=== PATIENT | male | born 1995 | race Caucasian/White ===

== ENCOUNTER 2020-04-04 00:59 | Inpatient (IN) ==
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
[2020-04-04 01:26] LABS: Appearance Urine Clear (Clear); Bilirubin Urine Negative (Negative); Blood Urine Negative (Negative); Color Urine Yellow; Glucose Urine UA Negative (Negative); Ketones Urine Negative (Negative); Leukocyte Esterase Urine Negative (Negative); Nitrite Urine Negative (Negative); Protein Urine Negative (Negative); Urobilinogen Urine Negative (Negative)
[2020-04-04 01:51] LABS: Basophils # (auto) 0.04 K/uL (0-0.2); Basophils % (auto) 0.4 %; Eosinophils # (auto) 0.18 K/uL (0-0.5); Eosinophils % (auto) 1.7 %; Hematocrit (blood only) 47.2 % (42-52); Hemoglobin 15.9 g/dL (14.0-18.0); Immature Granulocytes # (auto) 0.03 K/uL (0.00-0.02); Immature Granulocytes % (auto) 0.3 %; Lymphocytes % (auto) 22.7 %; Mean Corpuscular Hemoglobin 29.9 pg (25-34); Mean Corpuscular Hgb Conc 33.7 g/dL (32-36); Mean Corpuscular Volume 88.7 fL (80-100); Mean Platelet Volume 10.4 fL (7.4-10.4); Monocytes # (auto) 0.63 K/uL (0.11-0.59); Monocytes % (auto) 5.9 %; Neutrophils # (auto) 7.31 K/uL (1.4-6.5); Platelet Count 284 K/uL (130-400); RDW Coefficient of Variation 13.3 % (11.5-14.5); RDW Standard Deviation 43.5 fL (36.4-46.3); Red Blood Count 5.32 M/uL (4.7-6.1); White Blood Count 10.59 K/uL (4.8-10.8)
[2020-04-04 01:56] LABS: Amphetamines+Metham, Urine Pos (Neg); Barbiturates, Urine Neg (Neg); Benzodiazepine, Urine Neg (Neg); Cocaine, Urine Neg (Neg); MDMA (Ecstacy), Urine Neg (Neg); Methadone, Urine Neg (Neg); Opiate, Urine Neg (Neg); Phencyclidine, Urine Neg (Neg)
[2020-04-04 02:13] LABS: Albumin Level 4.2 gm/dl (3.4-5.0); BUN Creatinine Ratio 12.8 (10-20); Calcium 9.3 mg/dl (8.5-10.1); Creatinine Clr Calc Pharmacy 110.4 ml/min; Est GFR (African American) 118.4; Est GFR (Non-African American) 102.2; Potassium 4.2 mmol/L (3.5-5.1)
[2020-04-04] MEDS ORDERED: IOVERSOL 100ml IV PRN (02:17)
[2020-04-04 02:24] LABS: Albumin Globulin Ratio 1.1 (0.9-2); Bilirubin,Total 0.6 mg/dl (0.2-1); Globulin 3.8 gm/dl (2.5-4.0); Thyroid Stimulating Hormone 4.92 uIu/ml (0.300-4.500)
[2020-04-04 02:37] LABS: T4 Free Thyroxine 1.07 ng/dl (0.8-1.6)
[2020-04-04 02:39] LABS: Acetaminophen < 2 ug/ml (10-30)
[2020-04-04 02:40] LABS: Salicylate < 1.7 mg/dl (2.8-20)
--- NOTE | 2020-04-04 06:59 | CT Scan Report ---
CT OF THE NECK WITH IV CONTRAST CLINICAL HISTORY: eval trauma from attempted hanging COMPARISON STUDY: No previous studies for comparison. TECHNIQUE: Following IV administration of 93 mL of Optiray-320, helical axial images of the neck wer e obtained. Sagittal and coronal reconstructions were viewed. Automated exposure control was utiliz ed for the study. A dose lowering technique was utilized adhering to the principles of ALARA. CT DOSE: 586.26 mGy.cm FINDINGS: Visualized portions of the intracranial contents are unremarkable. The epiglottis is troy l. No hematoma within the neck is noted. There is no evidence of vascular injury within the neck. The re is mild asymmetric enlargement of the right laryngeal ventricle. No cervical spine fracture is not ed. There is no prevertebral edema. Lung apices are unremarkable. There is no pneumothorax within vis ualized portions of the upper chest. IMPRESSION: No acute findings within the neck. ACT 112: Negative or not required by law. Electronically signed by: Kory Martin M.D. 04/04/2020 6:58 AM
[2020-04-04] MEDS ORDERED: ACETAMINOPHEN 325 MG TAB PO PRN (09:16)
[2020-04-04] MEDS ORDERED: ALUMINUM/MAGNESIUM SUSP 30 ML UDC PO PRN (09:16)
[2020-04-04] MEDS ORDERED: BISMUTH SUBSALICYLATE PER ML OMNICELL CHARGE PO PRN (09:16)
[2020-04-04] MEDS ORDERED: MAGNESIUM HYDROXIDE SUSP 30 ML UDC PO PRN (09:16)
[2020-04-04] MEDS ORDERED: SODIUM CHLORIDE 0.65% NA SOLN 45 ML (OCEAN) PRN (09:16)
--- NOTE | 2020-04-04 09:38 | Emergency Department Note ---
ED Visit Note The patient was signed out to me awaiting placement. The patient was accepted at 3 S. at 9:35 AM. . : Suicide attempt by hanging Qualifiers: Encounter type: initial encounter Qualified Code(s): T71.162A - Asphyxiation due to hanging, intentional self-harm, initial encounter
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
[2020-04-04] MEDS ORDERED: AMPHETAMINE ASP/SULF/DEXTRAMPH 10 MG TAB PO ONE (14:00)
[2020-04-05] MEDS: AMPHETAMINE ASP/SULF/DEXTRAMPH 10 MG TAB PO SCH (08:02)
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
[2020-04-05] MEDS ORDERED: SERTRALINE HCL 50 MG TABLET PO ONE (12:15)
[2020-04-06] MEDS: AMPHETAMINE ASP/SULF/DEXTRAMPH 10 MG TAB PO SCH (07:56)
[2020-04-06] MEDS: SERTRALINE HCL 50 MG TABLET PO SCH (07:56)
[2020-04-06 09:10] LABS: Amphetamine Urine, Confirm 2970 ng/mL (<250); Methamphetamine, Ur Confirm NEGATIVE ng/mL (<250)
--- NOTE | 2020-04-06 11:18 | Psychiatric Progress Note ---
Date of Service April 06, 2020 Impression / Recommendations Impression 24-year-old male admitted involuntarily for inpatient psychiatric treatment on 04/04/2020 after presenting to the ED s/p suicide attempt by hanging. Pt has been seen at [facility] for medication management for ADHD, and Adderall was substituted for non-formulary Vyvanse on admission. Pt was initially withdrawn, but did agree to a scheduled support meeting with a friend and was eventually willing to discuss starting an antidepressant - sertraline. Friend/colleage is supportive, and so is patient's mother - who is planning to come to the area when the patient is discharged and stay with him. Although patient is now denying SI, he endorses feeling overwhelmed and "stuck". Inpatient psychiatric treatment is medically necessary until outpatient psychiatric services can be arranged and safety plan has been completed. Pt remains at acute risk of suicide if discharged prematurely. (1) Major depression: 04/04 The patient was admitted to the [facility] ([facility] mental health unit) on q15 min checks (behavioral with suicide precautions) for safety. The patient will participate in group, recreational, and milieu therapies and will be offered additional individual and family sessions as clinically appropriate. States he would consider a trial of antidepressant medication, will address after more settled on unit. 04/05 - Pt continues to be somewhat withdrawn, but is agreeable with conversation and is willing to discuss medication recommendations. Pt verbalizes willingness to initiate an SSRI to target depressive/anxiety symptoms - stating this was initially recommended when he began treatment for ADHD, but he felt he did not need an antidepressant at the time. Risks, benefits, and potential side effects of sertraline were reviewed - pt verbalized understanding and is agreeable with receiving 25mg this afternoon, and increasing to 50mg qAM starting tomorrow morning. - Pt denies SI presently, but feels admission is beneficial in order for him to work though his recent stressors and develop a plan for how to deal recent events. - Support meeting scheduled for this afternoon with a friend/colleague - Pt to follow-up at [facility] for bridge appointments, question of community referral for continued medication management and therapy 04/06 - Reports improvement in mood and more motivated since support meeting yesterday and opportunity to speak with his mother. Pt was able to identify plans to eliminate contact with his ex-girlfriend and use his mother as a steam [employer] records clerk for information to be transmitted if necessary. - Pt denies side effects related to initiation of sertraline, agreeable to continuing 50mg dose for the time being. Will follow-up with [facility] for medication management - Confirm referral for outpatient therapy - Pt denies SI at this time, discussed recommendation to continue to engage in group programming and request 1:1 sessions as needed (2) Attention deficit disorder (ADD) in adult: 04/04 replace Vyvanse with formulary alternative Adderall 10 mg po BID (9 and 2 pm) 04/05 - Bridge appointments at [facility] for continued medication management - Pt agreeable with continuing Adderall - was informed that home medication (Vyvanse) could be brought to the hospital if he wished to continue this medication Risk Factors Assessment Male: Yes : Yes Do You Have Access To A Gun?: No Health Problems: No Substance Use Disorders: No Previous Psychiatric Hospitalization: No Protective Factors Assessment Employed: Yes Interval History Identifying Information 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 Chief Complaint "Ok. I talked with my mom last night." Review of Systems Notes Constitutional: denied Cardiovascular: denied Respiratory: denied Gastrointestinal: denied Neurological: denied Psychiatric: denies symptoms other than stated above Total of at least 10 systems reviewed, pertinent positives as above and in HPI. Sleep Information Total Hours of Sleep: 6.5 Meal Information Percent Meal Consumed - Breakfast: 100 Percent Meal Consumed - Lunch: 100 Percent Meal Consumed - Dinner: 75 Subjective Subjective Patient was seen & assessed and interval progress reviewed with treatment team. Staff report the patient has been cooperative with staff. Has been out of his room frequently, though remainder of milieu has been difficult to engage in group programming. Pt was seen today to assess progress since admission. Pt states he is "ok. I talked with my mom last night." Pt states his mother is planning to come to the area to stay with him after discharge. Pt states he has been able to realize "I do have a good support net, I didn't initially think I did." Pt states he has been surprised with the support he received from his advisor and has been able to work toward discharge planning with support of family/friends. Pt states he is planning to communicate with his ex-girlfriend that he is no longer going to entertain communication with her. He states he is then planning to change his phone number and request that [facility] change his email address. Pt states discussed with his mother that his mother can provide communication from the ex-girlfriend as needed over the course of her suspected . Pt denies SI at this time. He states he has been doing well and benefitting from group. He denies side effects related to initiation of sertraline. He denies other needs or concerns at this time. Physical Exam Psychiatric Orientation: alert, oriented x 3 and cooperative (and pleasant) Apperance: appropriately dressed, appropriately groomed and appeared stated age Eye Contact: good eye contact Motor Behavior: steady gait and station and no abnormal motor movements Speech: normal rate/rhythm/volume of speech Affect: euthymic affect and mood congruent with affect Mood: no depressed mood ("Ok. Better I think") Thought Process: goal directed thought process, clear/coherent thought process and thought association intact Thought Content: reality based without delusions; no hopelessness Suicidal Thoughts: denies suicidal thoughts Homicidal Thoughts: denies homicidal thoughts Hallucinations: no auditory hallucinations and no visual hallucinations Cognition: recent memory grossly intact, attention grossly intact and language grossly intact Insight: + fair insight Judgement: + fair judgement Vital Signs (Past 24 Hours) Last Vital Signs Temp 36.7 C 04/06/20 06:36 Pulse 58 L 04/06/20 06:37 Resp 18 04/06/20 06:36 BP 118/72 04/06/20 06:37 Pulse Ox 99 04/04/20 09:14 Results & Data ([facility]) Laboratory Results Laboratory Results - last 24 hr 04/04/20 01:15 U Amphetamines Confirm 2970 H U Methamphetamin Confrm NEGATIVE Drug Screen Comment SEE NOTE Current Inpatient Medications Current Inpatient Medications: Current Inpatient Medications Acetaminophen (Tylenol) 650 mg PO Q4H PRN PRN Reason: Headache or Minor Fever Stop: 05/04/20 09:15 Al Hydrox/Mg Hydrox/Simethicone (Maalox) 30 ml PO Q4H PRN PRN Reason: GI Upset Stop: 05/04/20 09:15 Amphetamine/Dextroamphetamine (Adderall) 10 mg PO QAM LUCIANO Stop: 04/19/20 08:59 Last Admin: 04/06/20 07:56 Dose: 10 mg Documented by: Bismuth Subsalicylate (Kaopectate) 15 ml PO PRN PRN PRN Reason: Loose Stool Stop: 05/04/20 09:15 Hydroxyzine HCl (Vistaril) 50 mg PO HSZ PRN PRN Reason: Insomnia Stop: 05/04/20 09:15 Hydroxyzine HCl (Vistaril) 25 mg PO Q4H PRN PRN Reason: Anxiety Stop: 05/04/20 09:15 Ioversol (Optiray 320 100ml) 93 ml IV ONCE PRN PRN Reason: Interaction Checking Stop: 04/08/20 02:16 Last Admin: 04/04/20 02:18 Dose: 1 ml Documented by: Magnesium Hydroxide (Milk Of Magnesia) 30 ml PO DAILY PRN PRN Reason: Constipation Stop: 05/04/20 09:15 Sertraline HCl (Zoloft) 50 mg PO QAM LUCIANO Stop: 05/06/20 08:59 Last Admin: 04/06/20 07:56 Dose: 50 mg Documented by: Sodium Chloride ([place] Nasal) 1 - 2 sprays NA PRN PRN PRN Reason: Nasal Dryness/Congestion Stop: 05/04/20 09:15 Mental Health & Subst Abuse Tx Psychiatrist Name of Psychiatrist: ANTHONY Pryor (until [facility]) Psychiatrist's Date of Appointment with Psychiatrist: 04/14/20 Time of Appointment with Psychiatrist: 4:00 p.m. Psychiatric Appointment Comment: [email or web address] Therapist Name of Therapist: Shanika Arroyo PhD Date of Therapist Appointment: 04/12/20 Time of Therapist Appointment: 4pm Post Discharge Appointments Primary Care Physician Name Of Family Doctor: [facility] Primary Care Provider Appointment Comment: [facility] Contact Information Discharge Discharge Address: [address] [place] [address] [address], [place], [place] [address]
[2020-04-07] MEDS: AMPHETAMINE ASP/SULF/DEXTRAMPH 10 MG TAB PO SCH (07:59)
[2020-04-07] MEDS: SERTRALINE HCL 50 MG TABLET PO SCH (07:59)
--- NOTE | 2020-04-07 10:07 | Psychiatric Progress Note ---
Date of Service April 07, 2020 Impression / Recommendations Impression 24-year-old male admitted involuntarily for inpatient psychiatric treatment on 04/04/2020 after presenting to the ED s/p suicide attempt by hanging. Pt has been seen at [facility] for medication management for ADHD, and Adderall was substituted for non-formulary Vyvanse on admission. Pt was initially withdrawn, but did agree to a scheduled support meeting with a friend and was eventually willing to discuss starting an antidepressant - sertraline. Friend/colleage is supportive, and so is patient's mother - who is planning to come to the area when the patient is discharged and stay with him. Pt has made progress by involving outpatient supports who have helped to develop a plan as it relates to discharge transition and future communication about his child. He continues to deny SI, but due to the very serious nature of his suicide attempt it is recommended that he continue inpatient treatment until tomorrow. (1) Major depression: 04/04 - The patient was admitted to the [facility] ([facility] mental health unit) on q15 min checks (behavioral with suicide precautions) for safety. The patient will participate in group, recreational, and milieu therapies and will be offered additional individual and family sessions as clinically appropriate. States he would consider a trial of antidepressant medication, will address after more settled on unit. 04/05 - Pt continues to be somewhat withdrawn, but is agreeable with conversation and is willing to discuss medication recommendations. Pt verbalizes willingness to initiate an SSRI to target depressive/anxiety symptoms - stating this was initially recommended when he began treatment for ADHD, but he felt he did not need an antidepressant at the time. Risks, benefits, and potential side effects of sertraline were reviewed - pt verbalized understanding and is agreeable with receiving 25mg this afternoon, and increasing to 50mg qAM starting tomorrow morning. - Pt denies SI presently, but feels admission is beneficial in order for him to work though his recent stressors and develop a plan for how to deal recent events. - Support meeting scheduled for this afternoon with a friend/colleague - Pt to follow-up at [facility] for bridge appointments, question of community referral for continued medication management and therapy 04/06 - Reports improvement in mood and more motivated since support meeting yesterday and opportunity to speak with his mother. Pt was able to identify plans to eliminate contact with his ex-girlfriend and use his mother as a artificial cherry maker for information to be transmitted if necessary. - Pt denies side effects related to initiation of sertraline, agreeable to continuing 50mg dose for the time being. Will follow-up with [facility] for medication management - Confirm referral for outpatient therapy - Pt denies SI at this time, discussed recommendation to continue to engage in group programming and request 1:1 sessions as needed 04/07 - Continue sertraline 50mg daily - can explore further titration on an outpatient basis - Aftercare in place - patient to have bridge appointment with [facility] for medication management, then will transfer to [place]. Outpatient therapy in place as well. - Plan for discharge tomorrow. (2) Attention deficit disorder (ADD) in adult: 04/04 replace Vyvanse with formulary alternative Adderall 10 mg po BID (9 and 2 pm) 04/05 - Bridge appointments at 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 Chief Complaint "Good. I talked to my parents, things are going well." Review of Systems Notes Constitutional: denied Cardiovascular: denied Respiratory: denied Gastrointestinal: denied Neurological: denied Psychiatric: denies symptoms other than stated above Total of at least 10 systems reviewed, pertinent positives as above and in HPI. Sleep Information Total Hours of Sleep: 6.5 Meal Information Percent Meal Consumed - Breakfast: 100 Percent Meal Consumed - Lunch: 100 Percent Meal Consumed - Dinner: 100 Subjective Subjective Patient was seen & assessed and interval progress reviewed with nursing and social work. Staff report the patient has been attending group programming. He rated his mood a 9/10 and "sleepy" last evening. Pt did speak with his mother last evening. Pt was seen today to assess progress since admission. Pt states he is "good" today. He reports he talked with his parents on the phone last evening. Pt states that his mother is planning to fly in to [place] tomorrow to stay with the patient unit next Saturday. After his mother leaves for home, the patient's friend is planning to stay with him for a while after that. Pt states that he did speak with his father, who was able to help him contact an contracts attorney. The patient states the process of exploring his parental rights would begin with a paternity test, but that in his home state the mother of the child often has more rights with regard to custody. Pt states he is hopeful to be a part of the child's life if possible, but "I don't it to be where the child is being used as a bargaining chip, I wouldn't want that for anyone." Pt states his current short-term goals are "to take care of myself and prevent any future stress." He continues to be impressed with the depth of his support network. He states "I was isolating from everyone while I was involved in that relation ship, I didn't realize my support because I didn't tell anyone what was going on. But now that everyone knows, they're all supportive." Pt continues to deny SI. We discussed plan for discharge tomorrow, with patient stating his friend/colleague will be picking him up from the hospital. Physical Exam Psychiatric Orientation: alert, oriented x 3 and cooperative (and pleasant) Apperance: appropriately dressed, appropriately groomed and appeared stated age Eye Contact: good eye contact Motor Behavior: steady gait and station and no abnormal motor movements Speech: normal rate/rhythm/volume of speech Affect: euthymic affect Mood: no depressed mood ("I'm good") and no anxious mood Thought Process: goal directed thought process, clear/coherent thought process and thought association intact Thought Content: reality based without delusions; no hopelessness and no worthlessness Suicidal Thoughts: denies suicidal thoughts, denies suicidal plan and denies suicidal intent Homicidal Thoughts: denies homicidal thoughts Hallucinations: no auditory hallucinations and no visual hallucinations Cognition: recent memory grossly intact, attention grossly intact and language grossly intact Estimated Intelligence: consistent with education level Insight: good insight Judgement: + fair judgement Vital Signs (Past 24 Hours) Last Vital Signs Temp 36.7 C 04/07/20 06:47 Pulse 73 04/07/20 06:47 Resp 18 04/07/20 06:47 BP 124/77 04/07/20 06:47 Pulse Ox 99 04/04/20 09:14 Results & Data ([facility]) Current Inpatient Medications Current Inpatient Medications: Current Inpatient Medications Acetaminophen (Tylenol) 650 mg PO Q4H PRN PRN Reason: Headache or Minor Fever Stop: 05/04/20 09:15 Al Hydrox/Mg Hydrox/Simethicone (Maalox) 30 ml PO Q4H PRN PRN Reason: GI Upset Stop: 05/04/20 09:15 Amphetamine/Dextroamphetamine (Adderall) 10 mg PO QAM LUCIANO Stop: 04/19/20 08:59 Last Admin: 04/07/20 07:59 Dose: 10 mg Documented by: Bismuth Subsalicylate (Kaopectate) 15 ml PO PRN PRN PRN Reason: Loose Stool Stop: 05/04/20 09:15 Hydroxyzine HCl (Vistaril) 50 mg PO HSZ PRN PRN Reason: Insomnia Stop: 05/04/20 09:15 Hydroxyzine HCl (Vistaril) 25 mg PO Q4H PRN PRN Reason: Anxiety Stop: 05/04/20 09:15 Ioversol (Optiray 320 100ml) 93 ml IV ONCE PRN PRN Reason: Interaction Checking Stop: 04/08/20 02:16 Last Admin: 04/04/20 02:18 Dose: 1 ml Documented by: Magnesium Hydroxide (Milk Of Magnesia) 30 ml PO DAILY PRN PRN Reason: Constipation Stop: 05/04/20 09:15 Sertraline HCl (Zoloft) 50 mg PO QAM LUCIANO Stop: 05/06/20 08:59 Last Admin: 04/07/20 07:59 Dose: 50 mg Documented by: Sodium Chloride ([place] Nasal) 1 - 2 sprays NA PRN PRN PRN Reason: Nasal Dryness/Congestion Stop: 05/04/20 09:15 Mental Health & Subst Abuse Tx Psychiatrist Name of Psychiatrist: ANTHONY Pryor (until Ann returns) Psychiatrist's Date of Appointment with Psychiatrist: 04/14/20 Time of Appointment with Psychiatrist: 4:00 p.m. Psychiatric Appointment Comment: [email or web address] Therapist Name of Therapist: Shanika Arroyo PhD Date of Therapist Appointment: 04/12/20 Time of Therapist Appointment: 4pm Post Discharge Appointments Primary Care Physician Name Of Family Doctor: [facility] Primary Care Provider Appointment Comment: [facility] Specialist Name of Specialist: Jeannette Jansen PA-C Phone Number for Specialist: [phone] Date of Appointment with Specialist: 05/06/20 Time of Appointment with Specialist: 1:10pm Specialty Appointment Comment: [phone] [facility] Contact Information Discharge Discharge Address: [address], [place] [address]
[2020-04-08] MEDS: AMPHETAMINE ASP/SULF/DEXTRAMPH 10 MG TAB PO SCH (07:57)
[2020-04-08] MEDS: SERTRALINE HCL 50 MG TABLET PO SCH (07:57)
--- NOTE | 2020-04-08 10:13 | Discharge Summary ---
Date of Service April 08, 2020 History of Present Illness Patient called crisis last night to report a serious suicide attempt around 11 pm. He has been feeling increasingly depressed over the past 2-3 weeks and decided to take hammock ropes and attempt to kill himself by hanging from the sports goal post at a local park. He was unsuccessful, reportedly due to height of 6'2" perhaps, and suffered an abrasion to his neck. Notes reflect that he stopped responding to crisis workers attempt to contact him and he was ultimately brought in by police on a warrant. A CT scan of the neck (no injury) and 302 were completed. The patient reports not understanding the 302 process and that his phone automatically blocks calls from blocked numbers, regardless he understands the severity of his actions but does not voice regret. 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 He initially denied prior suicide attempts, clearly has some scars on his left upper arm that were self-inflicted, he wouldn't elaborate. Per patient to ED staff/liaison he is from [place] and had a PFA against an ex-girlfriend there for domestic violence. It was no longer enforceable when he left the state last year to start grad school. She has a history of calling his friends and employer. Reportedly she called his most recent girlfriend claiming to be (not possible given date he left [facility]) but girlfriend stated she didn't want to continue the relationship with the level of drama. PDMP database query shows regular rx of Vyvanse 50 mg po qam from [facility]. Patient states he uses most days, has used Adderall in past when younger and would prefer substitute Adderall here rather than getting a friend to bring non-formulary med in, particularly given visiting restrictions. He denies any hx of kendy. Physical Exam Psychiatric Orientation: alert, oriented x 3 and cooperative Apperance: appropriately dressed and appropriately groomed Eye Contact: good eye contact Motor Behavior: steady gait and station Speech: normal rate/rhythm/volume of speech Affect: euthymic affect "Much better." Thought Process: goal directed thought process, linear/logical thought process and clear/coherent thought process Thought Content: reality based without delusions Suicidal Thoughts: denies suicidal thoughts Future oriented. Contracts for safety. Provides a detailed safety plan for community reentry. Homicidal Thoughts: denies homicidal thoughts Hallucinations: no auditory hallucinations Cognition: recent memory grossly intact, remote memory grossly intact, attention grossly intact and language grossly intact Estimated Intelligence: + above average estimated intelligence Insight: + fair insight Judgement: good judgement Vital Signs (Past 24 Hours) Last Vital Signs Temp 36.5 C 04/08/20 07:06 Pulse 70 04/08/20 07:06 Resp 18 04/08/20 07:06 BP 123/84 04/08/20 07:06 Pulse Ox 99 04/04/20 09:14 Principal Diagnosis Major Depressive Disorder Psychiatric Data During the course of hospitalization the patient was offered various modalities of psychiatric treatment and education. These included individual, group, activity, and chemotherapy. Initially, the patient was somewhat reluctant to participate actively in treatment, but this resolved fairly quickly and the patient was able to actively participate in efforts to improve his individual coping strategies. He had explained that in addition to lowered impulse control secondary to having consumed alcohol earlier in the day of his suicide attempt, he was overcome by embarrassment about his current circumstances; namely that after telling his family that he had tried to file a restraining order against his ex-girlfriend he ended up rekindling the relationship with her and, in fact, her assertion that she is by him may be true, he was ashamed to tell his friends and family what had happened because he feared their response and feared rejection. However, during the stay he was able to process what happened with his friends and family and came to realize that their support for him is largely unconditional. He was started on the antidepressant medication sertraline 50 mg a day and he indicates that he feels that he is tolerating sertraline well without any noted adverse effects. He also reports that he is beginning to find some benefits associated with sertraline. Specifically, he reports that he has noticed that he is obsessing and ruminating Far-Less, and has also been significantly less anxious. Because of his diagnosis of ADHD, we temporarily prescribed Adderall instead of his outpatient medication, Vyvanse, because Vyvanse is not on the hospital's formulary. The plan for discharge includes switching the patient back to Vyvanse 50 mg a day and continuing sertraline 50 mg a day. The patient consistently denied further suicidal thoughts throughout his hospital stay, and demonstrated that he was future oriented. 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 Day of Discharge Assessment At the time of the patient's discharge assessment he was found to be pleasant, cooperative, appropriately dressed and groomed, and engaged. He demonstrated good eye contact, and reported that his mood was "much better." His affect was euthymic and he smiled regularly and laughed out loud at least once during the assessment. The patient's thought processes demonstrated tight associations. His thought content was devoid of any psychotic features. He focused on his plan for managing the problematic relationship with his ex-girlfriend. Among other things, he has made arrangements with the help of his parents for an real estate attorney to handle all necessary interactions with the ex-girlfriend, which may include an insistence that she submit to a paternity test if she is, in fact, . There is no evidence of any perceptual disturbances. The patient's judgment is assessed as being good, and his insight is at least fair. His intelligence is above average. He has consistently reported that he is not having suicidal thoughts and attributes his suicide attempt prior to admission to a fairly impulsive act that was precipitated by his feeling overwhelmed and by his perception that he had no one to turn to. He explains that what is different now is that he now finds that his parents are unconditionally supportive, even after the learned that he had voluntarily resumed his romantic relationship, temporarily, with the ex-girlfriend and may be the father of the unborn child with which she claims she is . 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 The patient also notes that he is developing a more healthy relationship with his new girlfriend. He is able to spontaneously describe his safety plan for the community. He notes that he has made arrangements for a close friend, Maxim, to provide support should he develop thoughts of self injury in the future, and he notes that Maxim has agreed to provide all assistance necessary, including helping the patient get to the emergency room, as needed. Also, the patient says that his parents will also be available to him in the event that his suicidal thoughts return. Patient has no homicidal thoughts Transition of Care Transition Of Care Record: was reviewed with the patient Advance Directives Advance Directives Information Provided: Yes Advance Directives: No Mental Health Advance Directive: No Advance Directives on File: No Living Will: No Power of [place]ris[place] Attorney: No Advance Directives Reason:: Declines as Mental Health Visit. Risk Factors Assessment Past history of intentional self-injurious behaviors (cutting fleshy portions of his left arm). Recurrent depression. Childhood trauma. History of impulsivity. These factors are mitigated by the fact that he enjoys strong family support as well as the local support of several close friends. Male: Yes : Yes Do You Have Access To A Gun?: No Health Problems: No Substance Use Disorders: No Previous Attempt: No Previous Psychiatric Hospitalization: No Protective Factors Assessment Mu-Ism Beliefs: No : No Responsible for Young Children: No Employed: Yes Stable Relationships: Yes Supportive Family: Yes Good Rapport with Provider: Yes Absence of Any Risk Factors Above: No Tobacco Cessation at Discharge Tobacco Cessation Medication Prescribed at Discharge: Not Applicable/Non-Smoker Total Time Total Time Spent: Greater Than 30 Minutes Total Time Includes: Examination of the patient, Discharge Planning, Medication Reconciliation and Communication with other providers Discharge Data Lab Results 04/04/20 04/04/20 04/04/20 01:15 01:15 01:15 WBC RBC Hgb Hct MCV MCH MCHC RDW Std Deviation RDW Coeff of Curt Plt Count MPV Immature Gran % (Auto) Neut % (Auto) Lymph % (Auto) [place] % (Auto) Eos % (Auto) Baso % (Auto) Neut # (Auto) Lymph # (Auto) [place] # (Auto) Eos # (Auto) Baso # (Auto) Immature Gran # (Auto) Sodium Potassium Chloride Carbon Dioxide Anion Gap BUN Creatinine Est Cr Clr Drug Dosing Est GFR ( Amer) Est GFR (Non-Af Amer) BUN/Creatinine Ratio Glucose Calcium Total Bilirubin AST ALT Alkaline Phosphatase Total Protein Albumin Globulin Albumin/Globulin Ratio TSH Free T4 Urine Color Yellow Urine Appearance Clear Urine pH 6.0 Ur Specific [place] 1.010 Urine Protein Negative Urine Glucose (UA) Negative Urine Ketones Negative Urine Blood Negative Urine Nitrite Negative Urine Bilirubin Negative Urine Urobilinogen Negative Ur Leukocyte Esterase Negative Salicylates Urine Opiates Screen Neg Ur Methadone, Qual Neg Acetaminophen Urine Barbiturates Neg Ur Phencyclidine (PCP) Neg U Amphetamines Confirm 2970 H U Amphetamin/Meth Scrn Pos H U Methamphetamin Confrm NEGATIVE MDMA (Ecstasy) Screen Neg U Benzodiazepines Scrn Neg Ur Cocaine Metabolite Neg U Marijuana (THC) Screen Neg Drug Screen Comment SEE NOTE Ethyl Alcohol mg/dL 04/04/20 04/04/20 04/04/20 01:32 01:32 01:32 WBC 10.59 RBC 5.32 Hgb 15.9 Hct 47.2 MCV 88.7 MCH 29.9 MCHC 33.7 RDW Std Deviation 43.5 RDW Coeff of Curt 13.3 Plt Count 284 MPV 10.4 Immature Gran % (Auto) 0.3 Neut % (Auto) 69.0 Lymph % (Auto) 22.7 [place] % (Auto) 5.9 Eos % (Auto) 1.7 Baso % (Auto) 0.4 Neut # (Auto) 7.31 H Lymph # (Auto) 2.40 [place] # (Auto) 0.63 H Eos # (Auto) 0.18 Baso # (Auto) 0.04 Immature Gran # (Auto) 0.03 H Sodium 142 Potassium 4.2 Chloride 107 Carbon Dioxide 29 Anion Gap 6.0 BUN 13 Creatinine 1.01 Est Cr Clr Drug Dosing 110.4 Est GFR ( Amer) 118.4 Est GFR (Non-Af Amer) 102.2 BUN/Creatinine Ratio 12.8 Glucose 95 Calcium 9.3 Total Bilirubin 0.6 AST 9 L ALT 17 Alkaline Phosphatase 66 Total Protein 8.0 Albumin 4.2 Globulin 3.8 Albumin/Globulin Ratio 1.1 TSH 4.920 H Free T4 1.07 Urine Color Urine Appearance Urine pH Ur Specific [place] Urine Protein Urine Glucose (UA) Urine Ketones Urine Blood Urine Nitrite Urine Bilirubin Urine Urobilinogen Ur Leukocyte Esterase Salicylates < 1.7 L Urine Opiates Screen Ur Methadone, Qual Acetaminophen < 2 L Urine Barbiturates Ur Phencyclidine (PCP) U Amphetamines Confirm U Amphetamin/Meth Scrn U Methamphetamin Confrm MDMA (Ecstasy) Screen U Benzodiazepines Scrn Ur Cocaine Metabolite U Marijuana (THC) Screen Drug Screen Comment Ethyl Alcohol mg/dL 04/04/20 01:32 WBC RBC Hgb Hct MCV MCH MCHC RDW Std Deviation RDW Coeff of Curt Plt Count MPV Immature Gran % (Auto) Neut % (Auto) Lymph % (Auto) [place] % (Auto) Eos % (Auto) Baso % (Auto) Neut # (Auto) Lymph # (Auto) [place] # (Auto) Eos # (Auto) Baso # (Auto) Immature Gran # (Auto) Sodium Potassium Chloride Carbon Dioxide Anion Gap BUN Creatinine Est Cr Clr Drug Dosing Est GFR ( Amer) Est GFR (Non-Af Amer) BUN/Creatinine Ratio Glucose Calcium Total Bilirubin AST ALT Alkaline Phosphatase Total Protein Albumin Globulin Albumin/Globulin Ratio TSH Free T4 Urine Color Urine Appearance Urine pH Ur Specific [place] Urine Protein Urine Glucose (UA) Urine Ketones Urine Blood Urine Nitrite Urine Bilirubin Urine Urobilinogen Ur Leukocyte Esterase Salicylates Urine Opiates Screen Ur Methadone, Qual Acetaminophen Urine Barbiturates Ur Phencyclidine (PCP) U Amphetamines Confirm U Amphetamin/Meth Scrn U Methamphetamin Confrm MDMA (Ecstasy) Screen U Benzodiazepines Scrn Ur Cocaine Metabolite U Marijuana (THC) Screen Drug Screen Comment Ethyl Alcohol mg/dL < 3.0 Hospital Course (1) Major depression: 04/04 - The patient was admitted to the [facility] ([facility] mental health unit) on q15 min checks (behavioral with suicide precautions) for safety. The patient will participate in group, recreational, and milieu therapies and will be offe red additional individual and family sessions as clinically appropriate. States he would consider a trial of antidepressant medication, will address after more settled on unit. 04/05 - Pt continues to be somewhat withdrawn, but is agreeable with conversation and is willing to discuss medication recommendations. Pt verbalizes willingness to initiate an SSRI to target depressive/anxiety symptoms - stating this was initially recommended when he began treatment for ADHD, but he felt he did not need an antidepressant at the time. Risks, benefits, and potential side effects of sertraline were reviewed - pt verbalized understanding and is agreeable with receiving 25mg this afternoon, and increasing to 50mg qAM starting tomorrow morning. - Pt denies SI presently, but feels admission is beneficial in order for him to work though his recent stressors and develop a plan for how to deal recent events. - Support meeting scheduled for this afternoon with a friend/colleague - Pt to follow-up at [facility] for bridge appointments, question of community referral for continued medication management and therapy 04/06 - Reports improvement in mood and more motivated since support meeting yesterday and opportunity to speak with his mother. Pt was able to identify plans to eliminate contact with his ex-girlfriend and use his mother as a director ehs for information to be transmitted if necessary. - Pt denies side effects related to initiation of sertraline, agreeable to continuing 50mg dose for the time being. Will follow-up with [facility] for medication management - Confirm referral for outpatient therapy - Pt denies SI at this time, discussed recommendation to continue to engage in group programming and request 1:1 sessions as needed 04/07 - Continue sertraline 50mg daily - can explore further titration on an outpatient basis - Aftercare in place - patient to have bridge appointment with [facility] for medication management, then will transfer to [place]. Outpatient therapy in place as well. - Plan for discharge tomorrow. 04/08 -Patient will be discharged on sertraline 50 mg daily with the recommendation that this medication be titrated as indicated on an outpatient basis. -The patient self reports that his mood is "much better," and his affect is bright. He reports that he is tolerating sertraline 50 mg daily without any noted adverse effects and he also reports that he feels that it is helping his mood and anxiety. -The patient reports that he has not had any thoughts of suicide since entering the hospital and is able to convincingly contract for safety in the community. He has developed a reasonable safety plan for community reentry and notes that he is prepared to follow it. (2) Attention deficit disorder (ADD) in adult: 04/04 replace Vyvanse with formulary alternative Adderall 10 mg po BID (9 and 2 pm) 04/05 - Bridge appointments at [facility] for continued medication management - Pt agreeable with continuing Adderall - was informed that home medication (Vyvanse) could be brought to the hospital if he wished to continue this medication 04/08 -PDMP rechecked today. The patient's most recent fill of Vyvanse had been on 03/03/2020. He notes that he believes that he has "may be 5-7" Vyvanse capsules at home, circumstance that is partly attributable to the fact that he has been in the hospital for the past several days. However, given his uncertainty about the number of Vyvanse capsules that he has at home we are discharging him with a prescription for an additional 10 Vyvanse 50 mg capsules, 1 capsule a day, pending his scheduled follow-up bridge appointment with [facility]. Mental Health & Subst Abuse Tx Psychiatrist Name of Psychiatrist: ANTHONY Pryor Psychiatrist's Date of Appointment with Psychiatrist: 04/14/20 Time of Appointment with Psychiatrist: 4:00 p.m. Psychiatric Appointment Comment: [email or web address] Therapist Name of Therapist: Shanika Arroyo PhD Therapist's Date of Therapist Appointment: 04/12/20 Time of Therapist Appointment: 4pm Therapy Appointment Comment: [address] [place] [address] Post Discharge Appointments Primary Care Physician Name Of Family Doctor: [facility] Primary Care Time of Appointment with PCP: Please follow up as needed Provider Appointment Comment: [facility] Specialist Name of Specialist: Jeannette Lawrence Phone Number for Specialist: [phone] Date of Appointment with Specialist: 05/06/20 Time of Appointment with Specialist: 1:10 pm Specialty Appointment Comment: [address] [facility] Smoking Cessation Counseling Tobacco Cessation Medication Prescribed at Discharge: Not Applicable/Non-Smoker Contact Information Discharge Discharge [address]: [address] [place] [id number] Discharge Plan Discharge Items Patient Disposition: Home - Self-Care Reason For Visit: MAJOR DEPRESSIVE DISORDER Discharge Diagnosis: Major Depressive Disorder Activity: Resume your previous activity Non-emergency contact: Psychiatrist Call non-emergency contact if: you have any medication questions and your symptoms worsen Follow-up/Referrals: PCP,NO [Primary Care Provider] - Diet: Regular Addtl Attending Provider Instructions: SPECIAL CARE INSTRUCTIONS: 1. Follow through with your scheduled aftercare appointments. If unable to keep an appointment, please call to reschedule. 2. Take your medication only as prescribed. Medication should not be changed or stopped without the approval of your doctor. In the event of worsening symptoms or concerns about side effects, contact your doctor immediately. 3. Utilize new healthy coping skills, anger management skills, and stress management skills learned during your hospitalization. Journal feelings and process them with a support person. Identify stressors or situations that may result in relapse, deterioration or inappropriate behaviors and develop a plan to deal with those issues. 4. If your coping skills are ineffective and you are in crisis, contact your outpatient providers for direction. If unable to reach your providers, please call the CAN HELP LINE AT or go to the closest Emergency Room. 5. Avoid alcohol and un-prescribed drugs. 6. You have been provided with the Mental Health Advance Directives Pamphlet for your review. AFTERCARE APPOINTMENTS: * Please call your insurance company prior to your scheduled appointment to confirm your aftercare providers are covered. Take your insurance information to your appointments. WHO TO CALL AND WHEN: Medical Emergencies: For questions or emergencies related to your hospital stay, please contact the Inpatient Behavioral Health Unit at [phone]. A picket labor union is on-call 22/04 for the Behavioral Health Unit for emergencies At any time you feel your situation is an emergency, you may also call 911 immediately. Your Doctors Instructions noted above were prepared by provider Kiran Engle MD. Pending Studies at Discharge: No Stand-Alone Forms: [facility], Smoking Cessation, Suicide Prevention Resources Medications and DC Order Prescriptions: New sertraline 50 mg Tablet 50 mg PO QAM Qty: 30 RF: 0 Vyvanse 50 mg capsule 50 mg PO DAILY Qty: 10 RF: 0 Discontinued Vyvanse 50 mg tablet 50 mg PO DAILY RF: 0 Discharge Orders: Discharge Order (Routine); Ordered 04/08/20 Ordered By: Kiran Engle Admission Data Admit Date/Time: 04/04/20 09:16 Attending Provider: Rand Parekh Admit Provider: Mary Alice Pryor Primary Care Provider: PCP,NO Other Interventions: PSY Interdisciplinary Discharge Planning Last Done: 04/08/20 09:16 C[place] [address] D/C day mgmt > 30 min Patient Type Established History Expanded Problem Focused Exam Expanded Problem Focused Medical Decision Making Moderate Complexity Diagnoses Major depression F32.9 Attention deficit disorder (ADD) in adult F98.8 Time Spent (min) 60
== END 2020-04-08 10:47 | disposition home or self-care (01) | DRG 881 ==
LOC: ED 00:59 → 3S 09:16